=== PATIENT | female | born 1990 | race Hispanic/Latino ===

== ENCOUNTER 2018-10-08 10:31 | Emergency (ER) | payer OTHER ==
[2018-10-08 10:55] VITALS: BMI 22.8
[2018-10-08 10:57] VITALS: TEMP 98.2
[2018-10-08] MEDS ORDERED: Sodium Chloride 0.9% 1,000 ML IV STA (11:45)
[2018-10-08 12:42] LABS: BASO # 0.1 K/uL (0.0-0.2); BASO % 0.4 % (0.0-2.0); EOS % 0.1 % (0.0-4.0); HEMOGLOBIN 15.3 g/dL (12.0-16.0); LYMPH # 0.7 K/uL (1.0-4.3); LYMPH % 5.1 % (20.0-40.0); MEAN CELL VOLUME 94.4 fl (81.0-99.0); MEAN CORPUSCULAR HEMOGLOBIN 31.9 pg (27.0-31.0); MEAN CORPUSCULAR HGB CONC 33.8 g/dL (33.0-37.0); MEAN PLATELET VOLUME 10.4 fl (7.2-11.7); MONO # 0.5 K/uL (0.0-0.8); MONO % 3.7 % (0.0-10.0); NEUT # 12.8 K/uL (1.8-7.0); NEUT % 90.7 % (50.0-75.0); PLATELET COUNT 344 K/uL (130-400); RBC 4.79 Mil/uL (3.80-5.20); WHITE BLOOD COUNT 14.1 K/uL (4.8-10.8)
[2018-10-08 12:57] LABS: ALB/GLOB RATIO 1.3 (1.0-2.1); ALT/SGPT 19 U/L (9-52); AST/SGOT 30 U/L (14-36); BLOOD UREA NITROGEN 22 mg/dl (7-17); GFR NON-AFRICAN AMERICAN > 60; LIPASE 39 U/L (23-300)
--- NOTE | 2018-10-08 13:03 | ED PDOC ---
HPI: Abdomen Time Seen by Provider: 10/08/18 11:26 Chief Complaint (Nursing): GI Problem Chief Complaint (Provider): GI Problem History Per: Patient History/Exam Limitations: no limitations Onset/Duration Of Symptoms: Days (x1) Current Symptoms Are (Timing): Still Present Location Of Pain/Discomfort: Epigastric Associated Symptoms: Vomiting, Diarrhea Additional Complaint(s): Antonio Mejia is a 28 year old female with a past medical history of IBS who is presenting to the ED for evaluation of vomiting, diarrhea, and epigastric pain onset yesterday. Patient states that she had multiple episodes of non-bloody non-bilious vomiting and watery diarrhea onset after eating sushi and other seafood last night. She reports that her friend also had some diarrhea but she is better now. Patient states that she has chills but no fevers and denies any recent antibiotics use. Of note, patient has had no recent travel except for a trip to [place]. PMD: none provided Past Medical History Reviewed: Historical Data, Nursing Documentation, Vital Signs Vital Signs: Last Vital Signs Temp 98.2 F 10/08/18 10:55 Pulse 118 H 10/08/18 10:55 Resp 20 10/08/18 10:55 BP 111/70 10/08/18 10:55 Pulse Ox 99 10/08/18 10:55 - Medical History Other PMH: IBS - Surgical History Surgical History: Hernia Repair, Tonsillectomy - Family History Family History: States: Unknown Family Hx - Social History Current smoker - smoking cessation education provided: No Alcohol: Social Drugs: Denies - Home Medications Home Medications: Ambulatory Orders Medication Instructions Recorded Dicyclomine [Dicyclomine HCl] 10 mg PO TID #15 cap 10/08/18 Ondansetron ODT [Zofran ODT] 4 mg PO Q8 PRN #12 odt 10/08/18 - Allergies Allergies/Adverse Reactions: Allergies Allergy/AdvReac Type Severity Reaction Status Date / Time No Known Allergies Allergy Verified 10/08/18 11:31 Review of Systems ROS Statement: Except As Marked, All Systems Reviewed And Found Negative Constitutional: Positive for: Chills. Negative for: Fever Gastrointestinal: Positive for: Nausea, Vomiting, Abdominal Pain Physical Exam - Reviewed Nursing Documentation Reviewed: Yes Vital Signs Reviewed: Yes - Physical Exam Appears: Positive for: Non-toxic, No Acute Distress, Uncomfortable Head Exam: Positive for: ATRAUMATIC, NORMAL INSPECTION, NORMOCEPHALIC Skin: Positive for: Normal Color, Warm, DRY Eye Exam: Positive for: EOMI, Normal appearance, PERRL ENT: Positive for: Normal ENT Inspection Neck: Positive for: Normal, Painless ROM Cardiovascular/Chest: Positive for: Regular Rate, Rhythm. Negative for: Murmur Respiratory: Positive for: Normal Breath Sounds. Negative for: Respiratory Distress Gastrointestinal/Abdominal: Positive for: Soft, Tenderness (epigastric tenderness) Back: Positive for: Normal Inspection. Negative for: L CVA Tenderness, R CVA Tenderness, Vertebral Tenderness Extremity: Positive for: Normal ROM. Negative for: Deformity, Swelling Neurologic/Psych: Positive for: Alert, Oriented. Negative for: Motor/Sensory Deficits - Laboratory Results Result Diagrams: 10/08/18 11:52 10/08/18 11:52 - ECG O2 Sat by Pulse Oximetry: 99 (RA) Pulse Ox Interpretation: Normal - Progress Re-evaluation Time: 14:20 Condition: Re-examined, Improved Medical Decision Making Medical Decision Making: Time: 11:44 Impression: vomiting, diarrhea, abdominal pain Differentials: acute gastroenteritis, possible bacterial or viral infection, food related infection, pancreatitis Plan: --CMP --Lipase --ED Urine --ED Urine Dipstick --CBC --Bentyl 10 mg PO --IV Fluids --Pepcid 20 mg PO --Toradol 15 mg IVP --Zofran 4 mg IVP Scribe Attestation: Documented by Moni Rollins, acting as a scribe for Marianne Baird MD. Provider Scribe Attestation: All medical record entries made by the Scribe were at my direction and personally dictated by me. I have reviewed the chart and agree that the record accurately reflects my personal performance of the history, physical exam, medical decision making, and the department course for this patient. I have also personally directed, reviewed, and agree with the discharge instructions and disposition. Disposition - Clinical Impression Clinical Impression: Vomiting and diarrhea, Bandemia - Patient ED Disposition Is Patient to be Admitted: No Doctor Will See Patient In The: Office Counseled Patient/Family Regarding: Studies Performed, Diagnosis, Need For Followup - Disposition Disposition: Routine/Home Disposition Time: 14:22 Condition: IMPROVED Additional Instructions: ANTONIO MEJIA, thank you for letting us take care of you today. Your provider was Marianne Baird MD and you were treated for VOMITING. The emergency medical care you received today was directed at your acute symptoms. If you were prescribed any medication, please fill it and take as directed. It may take several days for your symptoms to resolve. Return to the Emergency Department if your symptoms worsen, do not improve, or if you have any other problems. Please contact your doctor or call one of the physicians/clinics you have been referred to that are listed on the Patient Visit Information form that is included in your discharge packet. Bring any paperwork you were given at discharge with you along with any medications you are taking to your follow up visit. Our treatment cannot replace ongoing medical care by a primary care provider outside of the emergency department. Thank you for allowing the [facility] team to be part of your care today. If you had an X-Ray or CT scan: A Radiologist will review the ED reading if any change in treatment is needed we will contact you. If you had a blood, urine, or wound culture: It will take several days for the results, if any change in treatment is needed we will contact you. If you had an STI test: It will take 48 hours for the results. Please call after 1 week if you have not heard back. Prescriptions: Dicyclomine [Dicyclomine HCl] 10 mg PO TID #15 cap Ondansetron ODT [Zofran ODT] 4 mg PO Q8 PRN #12 odt PRN Reason: Nausea/Vomiting Instructions: Diarrhea in Adolescents and Adults, Nausea and Vomiting, Adult (DC)
[2018-10-08 14:19] LABS: BANDS 6 % (0-2); LYMPHOCYTE 12 % (20-50); MONOCYTE 6 % (0-10); MYELOCYTE 1 % (0-0); NEUTROPHIL 75 % (42-75); TOTAL CELLS COUNTED 100
[2018-10-08 14:20] LABS: PLATELET ESTIMATE NORMAL (NORMAL)
[2018-10-08 14:24] VITALS: O2SAT 99
[2018-10-08 14:51] VITALS: BP 107/76; PULSE 77; RESP 19
== END 2018-10-08 14:50 | disposition home or self-care (01) ==
LOC: H.ER 10:31
DX: D72.825 Bandemia (principal); R19.7 Diarrhea, unspecified; R11.10 Vomiting, unspecified; Z79.899 Other long term (current) drug therapy
CPT/HCPCS: 80053; 81025; 83690; 85025; 96361; 96374; 96375; 99284; J1885; J2405; J7030